=== PATIENT | female | born 1960 | race Asian ===

== ENCOUNTER → 2017-03-24 | Outpatient (CLI) | payer OTHER ==
[~2017-03-24] MED LIST: CHOLESTEROL; COZAAR100 MG PO; FENOFIBRATE145 M1 PO; GLIPIZIDE10 MG PO; HYDROCHLOROTHIA25 MG PO; LOSARTAN POTASS50 MG PO; MELOXICAM15 MG PO; METFORMIN PO; NORCO 10-325 TA1 TAB PO; NORVASC PO; SHARK CARTILAG750 MG PO; VOLTAREN75 MG PO
--- NOTE | ~2017-03-24 | CR170 ---
[facility] A Service of [facility] RADIOLOGY TEXT RESULTS PATIENT: EAGLE SWARTZ LOCATION: [facility] : 56 UNIT #: [id number] AGE: [address]: FABIANA LRAKIN APRN SEX: F ORDER DR: [id number] [place] [id number] [facility]. [place], [place] [address] [id number] O MR#: [id number] Acc #: [id number] NAME: EAGLE SWARTZ : 1960 SEX: F STUDY DATE/TIME: 03/24/2017 15:48 UNIT: [facility] ROOM: STUDY DESCRIPTION: CR Knee 2 Views Rt Attending Physician: Fabiana Larkin Aprn Referring Physician: Fabiana Larkin Aprn Ordering Physician: Fabiana Larkin Aprn Primary Care Physician: Floyd VasquesPLatashaRMyron MEDICAL IMAGING REPORT This report is preliminary unless electronic signature is present EXAM Right knee 2 views to 03/24/2017. HISTORY Medial and lateral right knee pain for 2 years, worsening in the past 6 months with no known injury. FINDINGS 2 views of the right knee demonstrate moderate narrowing of the medial compartment of the knee with small osteophytes extending off the femoral condyles, the tibial plateau, and the posterior aspect of the patella. Degenerative sclerosis and subchondral cyst formation is seen involving the medial compartment of the knee and along the posterior aspect of the patella. There is a small knee joint effusion. IMPRESSION 1. Degenerative change involving the right knee, as detailed above. No evidence of fracture. 2. Small knee joint effusion. Dictated by... Ambrocio Isbell M.D. THIS IS AN ELECTRONICALLY VERIFIED REPORT Ambrocio Isbell M.D. at 03/26/2017 7:46 AM MONIK/zamzam TD: 03/25/2017 13:53 JOB #: [id number] [facility] A Service of [facility] RADIOLOGY TEXT RESULTS PATIENT: EAGLE SWARTZ LOCATION: [facility] #: [id number] : 56 UNIT #: [id number] AGE: [address]: FABIANA LARKIN APRN SEX: F ORDER DR: MEDICAL IMAGING REPORT Page 1 of 1 COPY
--- NOTE | ~2017-03-24 | CR169 ---
[facility] A Service of [facility] RADIOLOGY TEXT RESULTS PATIENT: EAGLE SWARTZ LOCATION: [facility] : 56 UNIT #: [id number] AGE: [address]: FABIANA LARKIN APRN SEX: F ORDER DR: [id number] [id number] [facility]. [place], [place] [address] [id number] O MR#: [id number] Acc #: [id number] NAME: EAGLE SWARTZ : 1960 SEX: F STUDY DATE/TIME: 03/24/2017 15:48 UNIT: [facility] ROOM: STUDY DESCRIPTION: CR Knee 2 Views Lt Attending Physician: Fabiana Larkin Aprn Referring Physician: Fabiana Larkin Aprn Ordering Physician: Fabiana Larkin Aprn Primary Care Physician: Dorothy Casiano A.P.R.N. MEDICAL IMAGING REPORT This report is preliminary unless electronic signature is present EXAM Left knee, 2 views, 03/24/2017. HISTORY Left knee pain for 2 years worsening in the past 6 months. Pain medially and laterally. Osteoarthritis left knee. FINDINGS 2 views of the left knee demonstrate no fracture. There is degenerative change with mild to moderate narrowing of the medial compartment of the knee and there is narrowing of the patellofemoral joint. Small osteophytes extend off the femoral condyles, the tibial plateau, and the posterior aspect of the patella and there is degenerative sclerosis and cyst formation involving the medial compartment of the knee and degenerative cyst formation is seen involving the posterior patella. There is no joint effusion. IMPRESSION Degenerative change about the left knee. No acute abnormality. Dictated by... Ambrocio Isbell M.D. THIS IS AN ELECTRONICALLY VERIFIED REPORT Ambrocio Isbell M.D. at 03/26/2017 7:47 AM MONIK/solomon TD: 03/25/2017 13:51 JOB #: [id number] MEDICAL IMAGING REPORT [facility] A Service of [facility] RADIOLOGY TEXT RESULTS PATIENT: EAGLE SWARTZ LOCATION: [facility] : 56 UNIT #: [id number] AGE: [address]: FABIANA LARKIN APRN SEX: F ORDER DR: Page 1 of 1 COPY
== END | disposition home or self-care (01) ==
LOC: CRAD 15:22
DX: M17.0 Bilateral primary osteoarthritis of knee (principal); M25.461 Effusion, right knee
CPT/HCPCS: 73560

== ENCOUNTER → 2017-05-28 | Outpatient (CLI) | payer OTHER ==
--- NOTE | ~2017-05-28 | US24 ---
[facility] A Service of [facility] RADIOLOGY TEXT RESULTS PATIENT: EAGLE SWARTZ LOCATION: [facility] : 56 UNIT #: [id number] AGE: [address]: FABIANA LARKIN APRN SEX: F ORDER DR: [id number] [facility] [address] [facility]. [place], [place] [address] [id number] O MR#: [id number] Acc #: [id number] NAME: EAGLE SWARTZ : 1960 SEX: F STUDY DATE/TIME: 05/28/2017 9:20 UNIT: [facility] ROOM: STUDY DESCRIPTION: US Breast Unilateral Attending Physician: Fabiana Larkin Aprn Referring Physician: Fabiana Larkin Aprn Ordering Physician: Fabiana Larkin Aprn Primary Care Physician: Fabiana Larkin Aprn MEDICAL IMAGING REPORT This report is preliminary unless electronic signature is present REVISED REPORT SEE ADDENDUM EXAM Targeted ultrasound right breast, 05/28/2017 INDICATIONS 57-year-old female with clinical concern for breast abscess on the right. Increasing size of a skin lesion in the 4 o'clock position of the right breast/chest wall. Recent trauma to the breast and chest wall from the underwire of a bra. Increasing size over the past week. TECHNIQUE Targeted ultrasound of the area of patient palpable concern was performed. COMPARISON No comparisons FINDINGS The patient was initially scanned independently by the technologist and then rescanned in my presence. I also personally scanned the patient. In the area of patient palpable concern 4 o'clock right breast/chest wall region there is a fluid collection just deep to the skin surface measuring 2.1 x 2.2 x 1.4 cm. There is internal debris and a swirling appearance under real-time surveillance. Imaging features are most characteristic of an abscess. There is overlying skin thickening which is also reddened most characteristic of infection. We are in the process of obtaining an order from the ordering nurse practitioner, Fabiana Larkin, for ultrasound guided drainage of the abscess at this time. Please see the subsequent separately dictated ultrasound guided abscess drainage procedure dictated the same date for further details. [facility] A Service [facility] RADIOLOGY TEXT RESULTS PATIENT: EAGLE SWARTZ LOCATION: [facility] #: [id number] : 56 UNIT #: [id number] AGE: [address]: FABIANA LARKIN APRN SEX: F ORDER DR: The patient is a Amharic speaking female and the patient encounter was facilitated by a telephone certified court/medical interpreter throughout discussions with the patient here in the department today. IMPRESSION Abnormal examination. There is a superficial breast abscess in the right breast/chest wall at 4 o'clock measuring up to 2.2 cm. Efforts underway to obtain an order for an ultrasound guided abscess drainage procedure here today in the department. Please see that report dictated separately for further details. The patient should plan on a followup ultrasound in about 3 months for reassessment following drainage of the abscess. We have no prior mammograms for this patient and the patient should obtain a screening mammogram at her next regularly scheduled interval. Patients over the age of 40 are entered into a reminder system with target due date for the next mammogram. A result letter will also be sent to the patient. BIRADS: 2 Benign Finding STAT * RESULT Dictated by... Nikolay Rothman M.D. KENNEY/hector TD: 05/28/2017 11:25 JOB #: [id number] ADDENDUM Right breast ultrasound 05/28/2017 ADDENDUM Please change the BIRADS for this dictation to BIRADS category 3, probably benign with short interval followup recommended. Dictated by... Nikolay Rothman M.D. THIS IS AN ELECTRONICALLY VERIFIED REPORT Nikolay Rothman M.D. at 06/02/2017 10:14 AM [facility] A Service of [facility] RADIOLOGY TEXT RESULTS PATIENT: EAGLE SWARTZ LOCATION: [facility] #: [id number] : 56 UNIT #: [id number] AGE: [address]: FABIANA LARKIN APRN SEX: F ORDER DR: KENNEY/camila TD: 05/28/2017 13:06 JOB #: [id number] MEDICAL IMAGING REPORT Page 1 of 1 COPY
--- NOTE | ~2017-05-28 | US19 ---
[facility] A Service of [facility] RADIOLOGY TEXT RESULTS PATIENT: EAGLE SWARTZ LOCATION: [facility] : 56 UNIT #: [id number] AGE: [address]: FABIANA LARKIN APRN SEX: F ORDER DR: [id number] [facility]. [place], [place] [address] [id number] O MR#: [id number] Acc #: [id number] NAME: EAGLE SWARTZ : 1960 SEX: F STUDY DATE/TIME: 05/28/2017 10:35 UNIT: [facility] ROOM: STUDY DESCRIPTION: US Breast Cyst Aspiiration W I Attending Physician: Fabiana Larkin Aprn Referring Physician: Fabiana Larkin Aprn Ordering Physician: Fabiana Larkin Aprn Primary Care Physician: Fabiana Larkin Aprn MEDICAL IMAGING REPORT This report is preliminary unless electronic signature is present EXAM Ultrasound-guided abscess drainage procedure right breast/chest wall, 05/28/2017. INDICATION 57-year-old Portuguese-speaking female complaining of a palpable lump in the right breast. Clinical concern for abscess. Increasing size of the right breast lump with a history of recent trauma to the area with an underwire from a bra. Increasing size over the past week. The patient underwent a diagnostic ultrasound of the area earlier this morning which demonstrated a breast abscess and she presents for ultrasound-guided drainage of the abscess following the abnormal diagnostic ultrasound this morning. FINDINGS Communication with the patient was facilitated by a telephone hardness tester present throughout the patient encounter today. The diagnosis of the abscess was discussed with the patient. Recommendation for ultrasound-guided drainage was communicated to the patient. The patient voiced understanding and agreement to proceed. Procedure and risks were discussed with the patient. These include the risks of bleeding, infection, and damage to adjacent structures. The patient gave both oral and written consent to proceed and the consent form was signed and on the chart prior to procedure. Prior to the procedure, a "time-out" protocol was also followed to confirm patient identity and procedure details. The abscess was localized to the 4 o'clock position of the right breast/chest wall that measures up to about 2.2 cm. It was adequately visualized to proceed. The skin was prepped and draped in the usual sterile fashion. Maximum sterile-barrier technique appropriate for procedure guidelines was utilized including the use of sterile gloves, sterile instruments, and sterile bandages. Local anesthesia was achieved with about 2 mL of a buffered 1% lidocaine solution. Thereafter, using [facility] A Service of [facility] RADIOLOGY TEXT RESULTS PATIENT: EAGLE SWARTZ LOCATION: [facility] : 56 UNIT #: [id number] AGE: [address]: FABIANA LARKIN APRN SEX: F ORDER DR: ultrasound guidance, an 18-gauge needle was advanced into the fluid collection. Appropriate needle location was documented with ultrasound throughout and images demonstrating appropriate needle placement were saved to the PACS system. Initially about 1.5-2 mL of purulent fluid was removed from the abscess. The fluid pocket did not completely collapse and a 14-gauge needle was advanced into the fluid collection under ultrasound guidance. Appropriate needle location was documented with ultrasound throughout and images demonstrating appropriate needle placement were saved to the PACS system. An additional 1.5-2 mL of bloody, purulent fluid was evacuated. Only a scant amount of fluid remained at the conclusion of the procedure. There were no immediate postprocedure complications. The fluid will be sent to the laboratory for analysis including culture and sensitivity. Appropriate followup recommendations have been provided in written form to the patient. I have also personally called the ordering nurse practitioner, Fabiana Larkin, with the results in the case and recommended a referral to a breast surgeon in the event the abscess recurs or does not resolve. The patient should plan on obtaining a followup ultrasound in about 3 months for reassessment. The patient has no prior mammograms at our facility (by report these are all located in [place], [place]). The patient should obtain a screening mammogram at her next scheduled interval when clinically appropriate. IMPRESSION 1. Successful ultrasound-guided aspiration of an abscess in the right breast/chest wall at 4 o'clock measuring up to 2.2 cm. No immediate post procedure complications. Please see the final cytopathology report for further details. 2. A followup ultrasound should be performed in about 3 months for reassessment. The patient should also plan on obtaining a screening mammogram at her next regularly scheduled interval as described above. 3. Findings and recommendations in the case were discussed with nurse practitioner, Fabiana Larkin, prior to this dictation. The patient would benefit from a surgical referral, as well, which was also discussed with nurse practitioner Adriano. Patients over the age of 40 are entered into a reminder system with target due date for the next mammogram. A result letter will also be sent to the patient. BIRADS: 3 Probably benign finding; short interval follow-up suggested. STAT * RESULT Dictated by... Nikolay Rothman M.D. [facility] A Service of [facility] RADIOLOGY TEXT RESULTS PATIENT: EAGLE SWARTZ LOCATION: [facility] : 56 UNIT #: [id number] AGE: [address]: FABIANA LARKIN [employer] SEX: F ORDER DR: THIS IS AN ELECTRONICALLY VERIFIED REPORT Nikolay Rothman M.D. at 05/28/2017 4:02 PM Vanessa TD: 05/28/2017 11:35 JOB #: [id number] MEDICAL IMAGING REPORT Page 1 of 1 COPY
== END | disposition home or self-care (01) ==
LOC: CWCC 08:59
DX: N61.1 Abscess of the breast and nipple (principal)
CPT/HCPCS: 76641; 76942; 87070; 87205

== ENCOUNTER → 2017-07-07 | Day surgery (SDC) | payer OTHER ==
--- NOTE | ~2017-07-07 | OR ---
Unit #: [id number] #: [id number] Patient: EAGLE SWARTZ [id number] [address] [id number] O MR#: [id number] NAME: EAGLE SWARTZ ROOM: Date of Procedure: 07/07/2017 Admission Date: 07/07/2017 Surgeon: Aaron Pan Jr., M.D. : 1960 Attending Physician: Aaron Pan Jr., M.D. Primary Care Physician: Fabiana Larkin Aprn OPERATIVE REPORT JOB NOTE: CC: FABIANA LARKIN APRN INDICATION FOR PROCEDURE The patient is a 57-year-old Portuguese female, recently presented to the office complaining of chronic infected cyst of the right breast near the sternal border. This is drained in the past and caused pain and she is brought in this time for excision of this under local anesthesia. She understands the procedure including the risks, including that of recurrence, infection, poor healing, and keloid formation, and consents. PREOPERATIVE DIAGNOSIS Chronic inflamed infected cyst of the right breast. POSTOPERATIVE DIAGNOSIS Chronic inflamed infected cyst of the right breast, noting approximately a 5 to 6 cm cyst. ANESTHESIA 1% Xylocaine with epinephrine locally. PROCEDURE PERFORMED Excision of cyst, right breast. DESCRIPTION OF PROCEDURE The patient was positioned in supine position. After being prepped and draped in routine fashion, she was anesthetized locally in the area of the cyst with 1% Xylocaine with epinephrine. An elliptical incision was made around the cyst with being totally excised from the surrounding tissue. After it was completely removed, it was sent to pathology. Hemostasis was achieved with the Bovie cautery and the deeper subcutaneous tissue approximated with interrupted 3-0 Vicryl sutures. The subcutaneous tissue and dermis were approximated with interrupted 3-0 Vicryl sutures. Skin edges approximated with continuous 5-0 nylon suture. Sterile compressive dressing was applied externally. Estimated blood loss minimal, less than 30 mL. The patient received no fluids during the procedure. Sponges and instrument counts were correct x3. No drains used. No complications. The patient was taken to the recovery room with stable vital signs in satisfactory condition. Dictated by... Aaron Pan Jr., M.D. Unit #: [id number] #: [id number] Patient: EAGLE SWARTZ SHASHI/augustin TD: 07/07/2017 11:52 JOB #: [id number] OPERATIVE REPORT Page 1 of 1 X Aaron Pan MD PROCEDURE OPERATIVE NOTE
== END | disposition home or self-care (01) ==
LOC: CSUR 07:56
DX: N60.31 Fibrosclerosis of right breast (principal); N61.0 Mastitis without abscess; L81.9 Disorder of pigmentation, unspecified; E11.9 Type 2 diabetes mellitus without complications; I10 Essential (primary) hypertension; M17.0 Bilateral primary osteoarthritis of knee; Z79.84 Long term (current) use of oral hypoglycemic drugs; Z79.899 Other long term (current) drug therapy
CPT/HCPCS: 82947; 88304